=== PATIENT | female | born 1965 | race Asian ===

== ENCOUNTER 2019-06-19 09:35 | Day surgery (SDC) | payer OTHER ==
[2019-06-17 15:30] VITALS: BMI 22.4
--- NOTE | 2019-06-19 08:24 | HP ---
[facility] - Chief Complaint Chief Complaint: left finger mass History of Present Illness: left finger mass History Source: Patient Limitations to Obtaining History: No Limitations - Past Medical History Allergies/Adverse Reactions: Allergies Allergy/AdvReac Type Severity Reaction Status Date / Time No Known Allergies Allergy Verified 01/18/12 07:41 ...LMP: 11/23/11 ...LMP Comment: hysterectomy - Current Medications Current Medications: Home Medications Medication Instructions Recorded Atorvastatin Ca [Lipitor] 10 mg PO HS 06/17/19 Cholecalciferol (Vitamin D3) 2,000 unit PO DAILY 06/17/19 [Vitamin D] Levothyroxine [Synthroid -] 25 mcg PO DAILY 06/17/19 [facility]ellite Physical Exam - Physical Examination General Appearance: Well Nourished ENT: Clear Lung: Clear to auscultation Heart: Regular rate & rhythm Breasts: Soft Abdomen: Soft Extremities: No edema Satellite Impression/Plan - Impression/Plan Impression: left finger mass Operative Procedure: excision mass left finger Date to be Performed: 06/19/19
[2019-06-19] MEDS ORDERED: ONDANSETRON 4 MG/2 ML VIAL IVPUSH PRN (11:47)
[2019-06-19] MEDS ORDERED: oxyCODONE HCL 5 MG TABLET PO PRN (11:47)
[2019-06-19] MEDS ORDERED: LACTATED RINGERS SOLUTION 1,000 ML IV SCH (12:00)
[2019-06-19] MEDS ORDERED: PROPOFOL 20 ML ONE (12:07)
[2019-06-19] MEDS ORDERED: MIDAZOLAM HCL 2 MG/2 ML SINGLE DOSE VIAL ONE ×2 (12:07→12:28)
[2019-06-19] MEDS ORDERED: ceFAZolin SODIUM 1 GM VIAL IVPB ONE (12:20)
[2019-06-19] MEDS ORDERED: LIDOCAINE HCL 1%, 10 MG/ML (20ML VIAL) ONE (12:25)
[2019-06-19] MEDS ORDERED: ceFAZolin SODIUM 1 GM VIAL ONE (12:29)
[2019-06-19] MEDS ORDERED: LIDOCAINE HCL 1%, 10 MG/ML (50 mL VIAL) IJ ONE (12:40)
[2019-06-19] MEDS ORDERED: BUPIVACAINE HCL/PF 0.5% (5 MG/ML) 30 ML VIAL IJ ONE (12:40)
--- NOTE | 2019-06-19 13:13 | OP ---
Operative Note - Note: Operative Date: 06/19/19 Pre-Operative Diagnosis: left index finger mass Operation: left index finger mass excision Post-Operative Diagnosis: Same as Pre-op Surgeon: Chris Forte Anesthesiologist/PAPER STACKER: Yakelin Schwartz Anesthesia: Local, MAC Specimens Removed: mass left index finger Estimated Blood Loss (mls): 0 Drains, Volume Out (mls): 0 Blood Volume Replaced (mls): 0 Fluid Volume Replaced (mls): 500 Operative Report Dictated: Yes
[2019-06-19 15:23] VITALS: BP 113/75; PULSE 64; TEMP 97.7
--- NOTE | 2019-06-19 20:05 | OP ---
DATE OF OPERATION: 06/19/2019 PREOPERATIVE DIAGNOSIS: Left index finger mass. POSTOPERATIVE DIAGNOSIS: Left index finger mass. PROCEDURE: Excision mass left index finger. SURGEON: Chris Whyte M.D. MECHANICAL REPAIR WORKER: Yakelin Schwartz CRNA ANESTHESIA: MAC. Local injection 8 mL 0.5% Marcaine with 1% lidocaine mixed. DRAINS: None. COMPLICATIONS: None. SPECIMEN: Mass, left index finger. BLOOD LOSS: None. BLOOD GIVEN: None. FLUID REPLACEMENT: 500 mL. INDICATION: This patient is a 54-year-old female with the preoperative diagnosis of a mass in the left index finger. After understanding the potential risks, complications, alternatives, benefits to surgery versus nonsurgical treatment, the patient elected to undergo this procedure. Patient understands that she may have recurrence of this mass. She will have a scar, and there may be temporary or permanent paresthesias. DESCRIPTION OF PROCEDURE; The patient was brought to the operating room, peripheral IV placed, IV sedation, given, 1 g of IV Ancef was given. MAC anesthesia was induced. The left upper extremity was prepped and draped in sterile fashion, elevated, exsanguinated, with Esmarch bandage. Tourniquet inflated to 250 mmHg. The entire case was done under 3.8 loop magnification. A midaxial incision was marked out with a marking pen. 8 mL of 0.5% Marcaine with 1% lidocaine mix was injected in and around the left index finger incision in metacarpal head. The incision was made with a number 15 scalpel blade, subcutaneous. Hemostasis achieved with a bipolar cautery. Dissection done with Littler scissors. There was a well circumscribed white soft mass which seemed to be encapsulated but multilobulated. After circumferential dissection it easily popped out of the finger. The area was copiously irrigated and washed out. I did not see any abnormal material, and it was irrigated again. Closure was done with 4-0 nylon. The area was then washed and dried, covered with 4 x 4 dressing, Webril and Coban. Tourniquet was taken down after total tourniquet time of 10 minutes. There were no complications during the case. The patient tolerated the procedure well, was brought to recovery room in stable condition. CHRIS WHYTE M.D. [id number]
--- NOTE | 2019-06-21 15:47 | PATH ---
Surgical Pathology Report Patient Name: KEE RIVAS [facility]. Rec. #: [id number] /Age/Gender: 1965 (Age: 54) / F Account: [id number] Location: [facility] Taken: 06/19/2019 Received: 06/19/2019 Reported: 06/21/2019 Physicians: Chris Forte M.D. Specimen(s) Received LEFT INDEX FINGER MASS Clinical History Left index finger mass Final Diagnosis INDEX FINGER, MASS, EXCISION: FIBROCONNECTIVE TISSUE WITH DENSE FIBROSIS SUGGESTIVE OF SCAR. Comment: Suggest clinical correlation. Electronically Signed Britany Jones M.D. Gross Description Received in formalin labeled "left index finger mass," is a 1.0 x 0.8 x 0.3 cm gonzalez, firm mass. Sectioning reveals homogeneous gonzalez, solid parenchyma. The specimen is serially sectioned and entirely submitted in one cassette. /06/19/2019 saudi06/19/2019
== END 2019-06-19 15:23 | disposition home or self-care (01) ==
LOC: JASU-SURG 09:35
PROVIDERS: ATTEND Orthopaedic Surgery
PROC: 0JBK0ZZ Excision of Left Hand Subcutaneous Tissue and Fascia, Open Approach (ICD-10-PCS; principal; 2019-06-19 11:00)
DX: D21.12 Benign neoplasm of connective and other soft tissue of left upper limb, including shoulder (principal)
CPT/HCPCS: 88307-TC; 94760

== ENCOUNTER 2019-09-20 08:30 | Emergency (ER) | payer OTHER ==
[2019-09-20 08:38] VITALS: BP 101/50; PULSE 71; TEMP 97.9; BMI 21.9
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
== END 2019-09-20 09:30 | disposition home or self-care (01) ==
LOC: JERFT 08:30
DX: S09.90XA Unspecified injury of head, initial encounter (principal); V43.52XA Car driver injured in collision with other type car in traffic accident, initial encounter; Y93.89 Activity, other specified; Y92.410 Unspecified street and highway as the place of occurrence of the external cause; E07.9 Disorder of thyroid, unspecified; E78.00 Pure hypercholesterolemia, unspecified
CPT/HCPCS: 99281-25